=== PATIENT | female | born 1975 | race Two or more races ===

== ENCOUNTER 2018-03-20 13:03 | Outpatient (CLI) | payer OTHER | END 2018-03-20 13:13 | disposition home or self-care (01) | LOC: NUCLEAR 13:03 → EDBD 13:03 → NUCLEAR 13:13 | DX: E21.0 Primary hyperparathyroidism (principal); N20.0 Calculus of kidney | CPT/HCPCS: 78072; A9500 ==

== ENCOUNTER 2018-08-03 07:53 | Outpatient (CLI) | payer OTHER ==
[~2018-08-03] VITALS: Ht 152.4 cm; Wt 52.2 kg
== END 2018-08-03 08:10 | disposition home or self-care (01) ==
LOC: OFIC 805 07:53
DX: J38.01 Paralysis of vocal cords and larynx, unilateral (principal); R49.0 Dysphonia; J31.2 Chronic pharyngitis